=== PATIENT | male | born 1945 | race Caucasian/White ===

== ENCOUNTER 2021-06-14 14:49 | Emergency (ER) | payer BC ==
[~2021-06-14] VITALS: Ht 177.8 cm; Wt 80.3 kg
[~2021-06-14 14:49] MED LIST: VALS160T2 PO
[2021-06-14 15:02] VITALS: BP_SYST 148
--- NOTE | 2021-06-14 17:06 | NUR ---
Patient to ER bed 07 to gown for evaluation. Side rails up.
--- NOTE | 2021-06-14 17:15 | NUR ---
PT CAME IN WITH C/O CONSTIPATION X 1 WEEK WITH ABD PAIN. PT IS AMBULATORY, AAOX4, V/S STABLE. NO N/V
--- NOTE | 2021-06-14 17:25 | NUR ---
ER DR. BARON AT THE BEDSIDE EXAMINING PT
--- NOTE | 2021-06-14 17:30 | NUR ---
AT THE BEDSIDE WITH DR. BARON FOR RECTAL EXAM, PT TOLERATED WELL
--- NOTE | 2021-06-14 18:22 | NUR ---
SOAP SUDS ENEMA GIVEN BY GRAVITY TO PT, TOLERATED WELL.
--- NOTE | 2021-06-14 18:32 | NUR ---
PT AMBULATES TO RESTROOM, STATES HE IS ONLY ABLE TO PASS WATER. MD MADE AWARE. VERBAL ORDER RECIVED TO ADMINISTER ANOTHER SOAP SUDS ENEMA. PT DENIES ABD CRAMPING OR WORSENING PAIN.
--- NOTE | 2021-06-14 18:42 | NUR ---
ANOTHER SOAP SUDS EMEMA ADMINISTERED BY GRAVITY, PT TOLERATED WELL
--- NOTE | 2021-06-14 19:00 | NUR ---
PT REPORTS STILL ON PASSING WATER VIA BOWEL, ER DR. BARON MADE AWARE
[2021-06-14 19:10] VITALS: BP_SYST 156
--- NOTE | 2021-06-14 19:10 | NUR ---
Assumed care of patient at change of shift. introduced self to patient and family, positioned for comfort. Patient still w/ no bm after 2nd soap suds enema. Awaiting further instructions by MD Faustin. Patient resting quietly. No acute distress noted. Vital signs within normal range.
--- NOTE | 2021-06-14 19:10 | NUR ---
REPORT GIVEN TO CANDACE LAMAS FOR CONTINUING CARE
[2021-06-14] MEDS ORDERED: MAGNESIUM CITRATE 300 ML ORAL SOLUTION PO ONE (19:30)
--- NOTE | 2021-06-14 19:37 | NUR ---
Medicated w/ 1 bottle of 300ml of Magnesium Citrate per MD orders. Will cont to monitor and observe for any adverse reaction. Bed to low position sr up. Patient shown nearest restroom. Continue to monitor.
[2021-06-14] MEDS ORDERED: MAGN296S30 PO (20:23)
--- NOTE | 2021-06-14 20:27 | NUR ---
Patient given written and verbal discharge instructions and verbalizes understanding. ER MD discussed with patient the results and treatment provided. Patient in stable condition. ID arm band removed. Rx of Magnesium Citrate given. Patient educated on pain management and to follow up with PMD. Pain Scale 3. Opportunity for questions provided and answered. Medication side effect fact sheet provided.
== END 2021-06-14 20:27 | disposition home or self-care (01) ==
LOC: SED 14:49
DX: K59.00 Constipation, unspecified (principal); I10 Essential (primary) hypertension; Z88.8 Allergy status to other drugs, medicaments and biological substances; Z79.899 Other long term (current) drug therapy
CPT/HCPCS: 74018; 99284